=== PATIENT | male | born 1960 | race Caucasian/White ===

== ENCOUNTER 2020-11-22 09:10 | Observation (INO) | payer OTHER ==
[~2020-11-22] VITALS: Ht 177.8 cm; Wt 77.1 kg
[2020-11-22 10:11] LABS: HEMOGLOBIN 12.9 gm/dl (14.0-17.5); RED BLOOD COUNT 3.95 M/UL (4.20-5.50); WHITE BLOOD COUNT 6.6 K/UL (4.5-11.0)
[2020-11-22 10:40] LABS: BUN/CREATININE RATIO 8 (0-10)
[2020-11-22] MEDS ORDERED: LISINOPRIL2.5 MG PO (13:31)
[2020-11-22] MEDS ORDERED: THIAMINE HCL100 MG PO (13:32)
[2020-11-22] MEDS ORDERED: NITROGLYCERIN0.4 MG SL (13:33)
[2020-11-22] MEDS ORDERED: LIPITOR80 MG PO (13:33)
[2020-11-22] MEDS ORDERED: PROTONIX40 MG PO (13:33)
[2020-11-22] MEDS ORDERED: RANEXA500 MG PO (13:34)
[2020-11-22] MEDS ORDERED: METOPROLOL SUC100 MG PO (13:34)
[2020-11-22] MEDS ORDERED: ZETIA10 MG PO (13:35)
[2020-11-22] MEDS ORDERED: FOLIC ACID 1 MG1 MG PO (13:35)
[2020-11-22] MEDS ORDERED: CARAFATE1 GM PO (13:35)
[2020-11-22] MEDS ORDERED: ASPIRIN81 MG PO (13:36)
[2020-11-22] MEDS ORDERED: PHENOBARBITAL32.4 MG PO ×2 (13:39→13:40)
[2020-11-22] MEDS ORDERED: MULTI-VITAMIN1 EACH PO (13:41)
[2020-11-23 03:46] LABS: HEMOGLOBIN 11.9 gm/dl (14.0-17.5); RED BLOOD COUNT 3.7 M/UL (4.20-5.50); WHITE BLOOD COUNT 5.6 K/UL (4.5-11.0)
[2020-11-23 04:02] LABS: BUN/CREATININE RATIO 7 (0-10)
== END 2020-11-23 17:48 | disposition other institution (70) ==
LOC: ER1 09:10 → CDU 12:20 → M/S 16:10
PROVIDERS: Physician Assistant; ADMIT Internal Medicine
DX: R07.89 Other chest pain (principal); M54.5 Low back pain; I11.0 Hypertensive heart disease with heart failure; I50.9 Heart failure, unspecified; F10.20 Alcohol dependence, uncomplicated; R42 Dizziness and giddiness; I48.91 Unspecified atrial fibrillation; E78.5 Hyperlipidemia, unspecified; I25.10 Atherosclerotic heart disease of native coronary artery without angina pectoris; K21.9 Gastro-esophageal reflux disease without esophagitis; D53.9 Nutritional anemia, unspecified; Z95.5 Presence of coronary angioplasty implant and graft; Z87.891 Personal history of nicotine dependence; Z87.11 Personal history of peptic ulcer disease; Z20.822 Contact with and (suspected) exposure to COVID-19; Z98.1 Arthrodesis status; Z90.49 Acquired absence of other specified parts of digestive tract; Z79.82 Long term (current) use of aspirin; Z79.899 Other long term (current) drug therapy
CPT/HCPCS: ECHO; 36415; 70450; 70498; 71045; 80048; 80053; 82550; 82553; 82607; 82746; 83874; 84484; 85025; 93005; 93306; 93880; 96374; 96375; 99285; G0378; J1200; J2765; J7040; Q9967; U0002

== ENCOUNTER 2020-11-24 08:49 | Emergency (ER) | payer OTHER ==
[~2020-11-24 08:49] MED LIST: ASPIRIN81 MG PO; CARAFATE1 GM PO; FOLIC ACID 1 MG1 MG PO; LIPITOR80 MG PO; LISINOPRIL2.5 MG PO; METOPROLOL SUC100 MG PO; MULTI-VITAMIN1 EACH PO; NITROGLYCERIN0.4 MG SL; PHENOBARBITAL32.4 MG PO; PROTONIX40 MG PO; RANEXA500 MG PO; THIAMINE HCL100 MG PO; ZETIA10 MG PO
[2020-11-24 09:54] LABS: HEMOGLOBIN 12.1 gm/dl (14.0-17.5); RED BLOOD COUNT 3.74 M/UL (4.20-5.50); WHITE BLOOD COUNT 7.6 K/UL (4.5-11.0)
[2020-11-24 10:21] LABS: BUN/CREATININE RATIO 10 (0-10)
== END 2020-11-24 17:50 | disposition home or self-care (01) ==
LOC: ER1 08:49
PROVIDERS: Student in an Organized Health Care Education/Training Program
DX: R06.00 Dyspnea, unspecified (principal); I48.91 Unspecified atrial fibrillation; I10 Essential (primary) hypertension
CPT/HCPCS: 36600; 71045; 80053; 82550; 82553; 82803; 83874; 83880; 84484; 85025; 85379; 93005; 99285; Q9967